=== PATIENT | female | born 1965 | race Caucasian/White ===

== ENCOUNTER 2016-12-15 23:01 | Emergency (ER) | payer OTHER ==
[2016-12-16 03:40] VITALS: BP 114/83
== END 2016-12-16 03:40 | disposition home or self-care (01) ==
LOC: ED 23:01
DX: M54.12 Radiculopathy, cervical region (principal); G43.909 Migraine, unspecified, not intractable, without status migrainosus; R06.02 Shortness of breath; I10 Essential (primary) hypertension; Z79.899 Other long term (current) drug therapy
CPT/HCPCS: J1885